=== PATIENT | male | born 1955 | race Caucasian/White ===

== ENCOUNTER 2020-10-10 20:19 | Emergency (ER) | payer MEDICARE, OTHER ==
[~2020-10-10] VITALS: Ht 165.1 cm; Wt 77.1 kg
[2020-10-10 20:20] VITALS: BP 158/77
--- NOTE | 2020-10-10 21:18 | NUR ---
Patient discharged to home in stable condition. Written and verbal after care instructions given. Patient verbalizes understanding of instruction. Pt ambulatory with a steady gait
== END 2020-10-10 21:21 | disposition home or self-care (01) ==
LOC: ER 20:19
DX: L03.811 Cellulitis of head [any part, except face] (principal); L40.8 Other psoriasis; I10 Essential (primary) hypertension; K21.9 Gastro-esophageal reflux disease without esophagitis

== ENCOUNTER 2020-10-23 14:06 | Emergency (ER) | payer MEDICARE, OTHER ==
[~2020-10-23] VITALS: Ht 165.1 cm; Wt 77.1 kg
--- NOTE | 2020-10-23 14:18 | NUR ---
pt to er bed 020 c/o generalized hives, itching x 4 days. denies sob or any throat discomfort. stable vitals. nad noted. awaiting md ayers.
--- NOTE | 2020-10-23 14:38 | NUR ---
dr limon at bedside for eval.
[2020-10-23] MEDS ORDERED: diphenhydrAMINE HCL 50 MG/ML VIAL ONE (14:50)
[2020-10-23] MEDS ORDERED: methylPREDNISolone SOD SUCC 125 MG/2ML VIAL ONE (14:50)
[2020-10-23] MEDS ORDERED: FAMOTIDINE/PF INJ 20 MG/2 ML VIAL IV ONE ×2 (14:50→15:00)
[2020-10-23] MEDS ORDERED: IV NS 0.9% 1,000 ML IV ONE (15:00)
[2020-10-23] MEDS ORDERED: methylPREDNISolone SOD SUCC 125 MG/2ML VIAL IV ONE (15:00)
[2020-10-23] MEDS ORDERED: diphenhydrAMINE HCL 50 MG/ML VIAL IV ONE (15:00)
--- NOTE | 2020-10-23 15:05 | NUR ---
medicated as ordered. see emar.
--- NOTE | 2020-10-23 16:27 | NUR ---
pt is cleared for discharged. pt requested if he can stay for a few minutes stating she is a little bit dazed and unsteady at this time.
--- NOTE | 2020-10-23 17:37 | NUR ---
Patient discharged to home in stable condition. Written and verbal after care instructions given. Patient verbalizes understanding of instruction.IV removed. Catheter intact and site benign. Pressure and 4x4 applied to site. No bleeding noted.
[2020-10-23 17:39] VITALS: BP 115/74
== END 2020-10-23 17:39 | disposition home or self-care (01) ==
LOC: ER 14:10
DX: L50.8 Other urticaria (principal); I10 Essential (primary) hypertension; K21.9 Gastro-esophageal reflux disease without esophagitis
CPT/HCPCS: 96361; 96374; 96375; 99284; J1200; J2930; J3490; J7030

== ENCOUNTER 2025-02-08 10:33 | Emergency (ER) | payer OTHER, MEDICAID ==
[~2025-02-08] VITALS: Ht 165.1 cm; Wt 74.8 kg
[2025-02-08] MEDS: IV NS 0.9% 500 ML BAG IV ONE (11:27)
[2025-02-08 11:38] LABS: BASOPHILS % (AUTO) 0.2 % (0.0-2.0); EOSINOPHILS % (AUTO) 0.2 % (0.0-6.0); HEMATOCRIT 46 % (39-51); HEMOGLOBIN 15.5 g/dL (13.5-17.5); LYMPHOCYTES # (AUTO) 0.6 K/uL (0.8-4.8); LYMPHOCYTES % (AUTO) 7.7 % (20.0-44.0); MEAN CORPUSCULAR HEMOGLOBIN 31 PG (26.0-33.0); MEAN CORPUSCULAR HGB CONC 34 g/dl (31.0-36.0); MEAN CORPUSCULAR VOLUME 91 fL (80-96); MONOCYTES % (AUTO) 0.6 % (2.0-12.0); NEUTROPHILS # (AUTO) 7.5 K/uL (1.8-8.9); NEUTROPHILS % (AUTO) 91.3 % (43.0-81.0); PLATELET COUNT (AUTO) 204 K/uL (150-450); RED BLOOD CELL COUNT(AUTO) 5.04 MIL/uL (4.5-6.0); RED CELL DISTRIBUTION WIDTH 13.4 % (11.5-15.0); WHITE BLOOD COUNT (AUTO) 8.2 K/uL (4.3-11.0)
[2025-02-08 11:40] LABS: CALCIUM, SERUM 9.2 mg/dL (8.5-10.1); CARBON DIOXIDE 32 mmol/L (21-32); CREATININE 1.6 mg/dL (0.6-1.3); GLUCOSE 129 mg/dL (74-106); UREA NITROGEN, BLOOD 23 mg/dL (7-18)
[2025-02-08 11:45] LABS: CHLORIDE 97 mmol/L (98-107); SODIUM SERUM 137 mmol/L (136-145)
[2025-02-08 12:10] LABS: LACTIC ACID 2.7 mmol/L (0.4-2.0); POTASSIUM 2.8 mmol/L (3.5-5.1)
[2025-02-08] MEDS ORDERED: LEVOFLOXACIN 750 MG /D5W 150ML PIGGYBACK IV ONE (12:30)
[2025-02-08] MEDS ORDERED: ALPR2TAB7 PO (12:31)
[2025-02-08] MEDS ORDERED: ASPI-1420 PO (12:31)
[2025-02-08] MEDS ORDERED: METO-358 PO (12:31)
[2025-02-08] MEDS ORDERED: ATOR20TA PO (12:31)
[2025-02-08] MEDS ORDERED: LOSA100T31 PO (12:31)
[2025-02-08] MEDS ORDERED: POTASSIUM CHLORIDE 20 MEQ TAB.PRT.SR PO ONE (12:55)
[2025-02-08] MEDS: POTASSIUM CHLORIDE 20 MEQ TAB.PRT.SR PO ONE (13:05)
[2025-02-08] MEDS: IV NS 0.9% 1,000 ML BAG IV ONE (13:05)
[2025-02-08 16:00] LABS: BILIRUBIN,DIRECT 0.7 mg/dL (0.0-0.2); BILIRUBIN,TOTAL 1.4 mg/dL (0.2-1.0)
[2025-02-08 16:03] LABS: LACTIC ACID REFLEX 1.7 mmol/L (0.4-1.9)
[2025-02-08 20:07] VITALS: BP 110/66; TEMP 98.6; O2SAT 96
== END 2025-02-08 20:07 | disposition left against medical advice (07) ==
LOC: ER 10:57
DX: U07.1 COVID-19 (principal); N17.9 Acute kidney failure, unspecified; E87.6 Hypokalemia; E78.5 Hyperlipidemia, unspecified; I10 Essential (primary) hypertension; Z79.82 Long term (current) use of aspirin; Z79.899 Other long term (current) drug therapy
CPT/HCPCS: 99285; 96360; 71045; 87426; 87804 ×2; 82247; 82248; 84145; 85025; 80048; 87040 ×2; 83605 ×2; 36415; J7030; J7040 ×2